=== PATIENT | male | born 1990 | race Two or more races ===

== ENCOUNTER 2021-03-30 11:04 | Emergency (ER) | payer OTHER ==
[~2021-03-30] VITALS: Ht 177.8 cm; Wt 77.3 kg
[2021-03-30 11:06] VITALS: BP 117/64
== END 2021-03-30 11:30 | disposition left against medical advice (07) ==
LOC: EMS 11:11
DX: L02.413 Cutaneous abscess of right upper limb (principal); Z53.21 Procedure and treatment not carried out due to patient leaving prior to being seen by health care provider

== ENCOUNTER 2021-03-30 19:02 | Emergency (ER) | payer OTHER ==
[~2021-03-30] VITALS: Ht 180.3 cm; Wt 89.1 kg
[2021-03-30 19:02] VITALS: BP 106/63
== END 2021-03-30 19:26 | disposition left against medical advice (07) ==
LOC: EMS 19:04
DX: L02.413 Cutaneous abscess of right upper limb (principal); Z53.21 Procedure and treatment not carried out due to patient leaving prior to being seen by health care provider

== ENCOUNTER 2021-04-13 16:42 | Emergency (ER) | payer OTHER ==
[~2021-04-13] VITALS: Ht 180.3 cm; Wt 87.3 kg
[2021-04-13 17:27] VITALS: BP 117/68
[2021-04-13] MEDS ORDERED: LIDOCAINE 2%/EPI 1:200,000/PF 10 ML VIAL ID ONE (17:30)
[2021-04-13] MEDS ORDERED: PERTUSS(ACELL),DIPH,TET VAC/PF 0.5 ML SYRINGE IM. ONE (17:30)
== END 2021-04-13 19:20 | disposition home or self-care (01) ==
LOC: EMS 16:44
DX: L02.413 Cutaneous abscess of right upper limb (principal); F17.210 Nicotine dependence, cigarettes, uncomplicated; F15.90 Other stimulant use, unspecified, uncomplicated; F12.90 Cannabis use, unspecified, uncomplicated
CPT/HCPCS: 10061; 90471; 90715; 99284

== ENCOUNTER 2021-10-26 18:59 | Emergency (ER) | payer OTHER ==
[~2021-10-26] VITALS: Ht 180.3 cm; Wt 87.3 kg
[2021-10-26 19:04] VITALS: BP 110/69
[2021-10-26] MEDS ORDERED: LIDOCAINE 1%/EPI 1:200,000/PF 10 ML VIAL PERC ONE (22:15)
[2021-10-26] MEDS ORDERED: CLINDAMYCIN HCL 150 MG CAPSULE PO ONE (22:15)
== END 2021-10-26 22:54 | disposition home or self-care (01) ==
LOC: EMS 19:00
DX: K13.0 Diseases of lips (principal); F12.90 Cannabis use, unspecified, uncomplicated; F15.90 Other stimulant use, unspecified, uncomplicated; Z77.22 Contact with and (suspected) exposure to environmental tobacco smoke (acute) (chronic)
CPT/HCPCS: 10060; 99283; J3490